=== PATIENT | male | born 1965 | race Caucasian/White ===

== ENCOUNTER → 2017-04-30 17:17 | Outpatient (CLI) | payer MEDICAID, SELFPAY ==
[2017-04-30 18:33] LABS: Basophils # 0.1 K/mm3 (0-0.2); Basophils % 0.7 % (0.1-2.0); Eosinophils # 0.2 K/mm3 (0.0-0.4); Hematocrit 45.3 % (42.0-52.0); Hemoglobin 15.2 g/dL (14.1-18.0); Lymphocytes # 2.3 K/mm3 (0.7-4.5); Lymphocytes % 26.7 K/mm3 (10-50); Mean Corpuscular HGB Conc 33.7 g/dL (31.8-35.4); Mean Corpuscular Hemoglobin 30.8 pg (27.0-31.2); Mean Corpuscular Volume 91.5 fl (80-94); Mean Platelet Volume 7.7 fl (7.4-10.4); Monocytes # 0.4 K/mm3 (0.1-1.0); Neutrophils # 5.6 K/mm3 (1.8-7.8); Neutrophils % 65.6 % (37.0-80.0); Platelet Count 279 K/mm3 (142-424); Red Blood Count 4.95 M/mm3 (4.60-6.20); Red Cell Distribution Width 13.7 % (11.5-17.5); White Blood Count 8.5 K/mm3 (4.8-10.8)
[2017-04-30 20:15] LABS: Alanine Aminotransferase 56 U/L (12-78); Albumin Level 4.4 gm/dL (3.4-5.0); Albumin/Globulin Ratio 1.6 (1.1-1.8); Alkaline Phosphatase 88 U/L (46-116); Anion Gap 13.3 mEq/L (5-15); Aspartate Amino Transferase 21 U/L (15-37); Bilirubin,Total 0.5 mg/dL (0.2-1.0); Blood Urea Nitrogen 13 mg/dL (7-18); Carbon Dioxide 27 mmol/L (21.0-32.0); Chloride 106 mmol/L (98-107); Chol/HDL Ratio 7.1 (1-3.5); Cholesterol 219 mg/dL (140-200); Creatinine,Serum 1.09 mg/dL (0.70-1.30); Estimated Glomerular Filt Rate 72 ml/min (>60); GFR (African American) 87 ML/MIN (>60); Globulin 2.7 gm/dl (1.3-3.2); Glucose 79 mg/dL (74-106); HDL Cholesterol 31 mg/dL (27-67); LDL Cholesterol 163 mg/dL (0-130); Potassium 4.3 mmoL/L (3.5-5.1); Sodium 142 mmol/L (136-145); Total Protein,Serum 7.1 gm/dL (6.4-8.2); Triglycerides 124 mg/dL (30-200); VLDL Cholesterol 25 mg/dL (0-40)
[2017-05-02 19:23] LABS: Vitamin B12 541 pg/mL (232-1245)
== END ==
PROVIDERS: PCP Internal Medicine Adolescent Medicine; Visit Provider Nurse Practitioner Family
DX: E53.8 Deficiency of other specified B group vitamins (principal); Z00.00 Encounter for general adult medical examination without abnormal findings
CPT/HCPCS: 36415; 80053; 80061; 82607; 85025

== ENCOUNTER → 2017-05-07 12:49 | Outpatient (CLI) | payer MEDICAID, SELFPAY ==
--- NOTE | 2017-05-07 13:00 | XR_ITS ---
XR tibia fibula LT 2V CLINICAL INDICATION: Left lower extremity pain ITS.REASON: GILMER-SCHLATTERS DISEASE, LT ANTERIOR KNEE PAIN ORDERING PHYSICIAN: Sudha Keith PATIENT AGE: 51 years COMPARISON: None FINDINGS: Ununited ossification center is present at the tibial tuberosity with minimal fragmentation and some minimal overlying soft tissue swelling. This is consistent with unresolved [place]-Schlatters Disease. The mid and distal aspect of the tibia and fibula have an unremarkable appearance IMPRESSION: The findings are consistent with unresolved [place]-Schlatters Disease
--- NOTE | 2017-05-07 13:00 | XR_ITS ---
XR knee LT 3V HISTORY: ITS.REASON: GILMER-SCHLATTERS DISEASE, LT ANTERIOR KNEE PAIN ORDERING PHYSICIAN: Sudha Keith PATIENT AGE: 51 years COMPARISON: None FINDINGS: Ununited ossification center is present at the tibial tuberosity with minimal fragmentation and some minimal overlying soft tissue swelling. This is consistent with unresolved [place]-Schlatters Disease. No fracture or dislocation. No lytic or blastic change. There is minimal osteoarthritic change of the medial compartment. 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
== END ==
PROVIDERS: PCP Internal Medicine Adolescent Medicine; Visit Provider Nurse Practitioner Family
DX: M92.52 Juvenile osteochondrosis of tibia tubercle (principal); M25.562 Pain in left knee
CPT/HCPCS: 73562; 73590

== ENCOUNTER → 2017-11-11 12:26 | Outpatient (CLI) | payer MEDICAID, SELFPAY ==
[2017-11-11 13:27] LABS: Alanine Aminotransferase 45 U/L (12-78); Albumin Level 4.2 gm/dL (3.4-5.0); Albumin/Globulin Ratio 1.6 (1.1-1.8); Alkaline Phosphatase 95 U/L (46-116); Anion Gap 14.2 mEq/L (5-15); Aspartate Amino Transferase 18 U/L (15-37); Bilirubin,Total 0.6 mg/dL (0.2-1.0); Blood Urea Nitrogen 11 mg/dL (7-18); Calcium 8.9 mg/dL (8.5-10.1); Carbon Dioxide 27 mmol/L (21.0-32.0); Chloride 105 mmol/L (98-107); Chol/HDL Ratio 6.2 (1-3.5); Cholesterol 185 mg/dL (140-200); Creatinine,Serum 1.26 mg/dL (0.70-1.30); Estimated Glomerular Filt Rate 60 ml/min (>60); GFR (African American) 73 ML/MIN (>60); Globulin 2.7 gm/dl (1.3-3.2); Glucose 102 mg/dL (74-106); HDL Cholesterol 30 mg/dL (27-67); LDL Cholesterol 139 mg/dL (0-130); Potassium 4.2 mmoL/L (3.5-5.1); Sodium 142 mmol/L (136-145); Total Protein,Serum 6.9 gm/dL (6.4-8.2); Triglycerides 78 mg/dL (30-200); VLDL Cholesterol 16 mg/dL (0-40)
[2017-11-11 13:44] LABS: Basophils # 0.1 K/mm3 (0-0.2); Basophils % 0.7 % (0.1-2.0); Eosinophils # 0.2 K/mm3 (0.0-0.4); Eosinophils % 2.2 % (0.1-12.0); Hematocrit 46.8 % (42.0-52.0); Hemoglobin 15.5 g/dL (14.1-18.0); Lymphocytes % 24.6 K/mm3 (10-50); Mean Corpuscular HGB Conc 33.2 g/dL (31.8-35.4); Mean Corpuscular Hemoglobin 30.8 pg (27.0-31.2); Mean Corpuscular Volume 92.8 fl (80-94); Mean Platelet Volume 7.4 fl (7.4-10.4); Monocytes # 0.4 K/mm3 (0.1-1.0); Monocytes % 5.1 % (1.7-9.3); Neutrophils # 5.4 K/mm3 (1.8-7.8); Neutrophils % 67.4 % (37.0-80.0); Platelet Count 304 K/mm3 (142-424); Red Blood Count 5.04 M/mm3 (4.60-6.20); Red Cell Distribution Width 13.5 % (11.5-17.5); White Blood Count 8.1 K/mm3 (4.8-10.8)
[2017-11-12 10:15] LABS: Vitamin B12 759 pg/mL (232-1245)
== END ==
PROVIDERS: Visit Provider Internal Medicine Adolescent Medicine
DX: E78.5 Hyperlipidemia, unspecified (principal); E53.8 Deficiency of other specified B group vitamins; R53.83 Other fatigue
CPT/HCPCS: 36415; 80053; 80061; 82607; 85025

== ENCOUNTER → 2020-08-15 10:05 | Outpatient (CLI) | payer OTHER, SELFPAY ==
--- NOTE | 2020-08-15 10:09 | MR_ITS ---
PROCEDURE INFORMATION: Exam: MR Lumbar Spine Without Contrast Exam date and time: 08/15/2020 10:09 AM Age: 54 years old Clinical indication: Low back pain; Additional info: Lumbago, cervical neuralgia. Bilateral leg pain, numbness, and tingling. Lbp. No injury or trauma TECHNIQUE: Imaging protocol: Multiplanar magnetic resonance images of the lumbar spine without intravenous contrast. COMPARISON: No relevant prior studies available. FINDINGS: Vertebrae: 2 mm of degenerative retrolisthesis of L4 on L5 and L5 on S1. No acute fracture seen. Spinal cord: The conus medullaris ends normally. Disc desiccation at L4-L5 and L5-S1. Rjlr-nc-qwlcgshj disc height loss and spondylosis at L5-S1. Mild endplate inflammation at L5-S1 is likely degenerative. L1-L2: No significant disc disease. No significant spinal canal stenosis. No neural foraminal stenosis. L2-L3: No significant disc disease. No significant spinal canal stenosis. No neural foraminal stenosis. L3-L4: No significant disc disease. No significant spinal canal stenosis. No neural foraminal stenosis. L4-L5: Slight retrolisthesis. Mild disc bulge and facet arthropathy as well as right ligamentum flavum buckling. High-intensity zone in posterior disc margin without a focal disc protrusion or extrusion. No significant central spinal canal stenosis. Lateral recess stenoses are mild, present more so on the right. No significant foraminal stenoses. L5-S1: Retrolisthesis. Drok-ss-kggruure diffuse disc osteophyte complex and facet arthropathy. A 2-3 mm component of right eccentric central soft disc protrusion may contact the right S1 nerve root without contribution to jose ramon nerve root compression or displacement. The central spinal canal is patent. Mild bilateral neural foraminal stenoses. Sacrum/coccyx: Post graft harvest changes of the right iliac wing. Soft tissues: Unremarkable. Kidneys and ureters: The left kidney appears mildly atrophic. IMPRESSION: 1. Mild lateral recess stenoses at L4-L5. 2. A small central disc protrusion at L5-S1 may contact the right S1 nerve root. 3. Mild bilateral neural foraminal stenoses at L5-S1.
--- NOTE | 2020-08-15 10:09 | MR_ITS ---
PROCEDURE INFORMATION: Exam: MR Cervical Spine Without Contrast Exam date and time: 08/15/2020 10:09 AM Age: 54 years old Clinical indication: Neck pain; Prior surgery; Surgery date: 6+ months; Additional info: Lumbago, cervical neuralgia. HX 3 neck surgeries last one 2011. Lt sided neck pain. Lt arm pain, numbness, and tingling. Tingling in 5th digit. No prior. TECHNIQUE: Imaging protocol: Multiplanar magnetic resonance images of the cervical spine without contrast. COMPARISON: No relevant prior studies available. FINDINGS: Vertebrae: Straightening of the cervical lordosis may be positional or due to muscle spasm. No acute fracture seen. Spinal cord: Normal signal. No cord compression. Prior ACDF from C5 through C7. There is solid osseous bridging across the C5-C6 and C6-C7 disc spaces. Susceptibility artifact related to posterior hardware at the C5-C6 level. Disc desiccation at C3-C4. There is mild posterior disc height loss with endplate osteophytic ridging. Minimal prevertebral spondylosis at C4-C5. C2-C3: The central spinal canal is patent. Moderate right facet arthropathy causing mild right neural foraminal stenosis. No significant left neural foraminal narrowing. C3-C4: Disc osteophyte complex and ligamentum flavum buckling without contribution to central spinal canal stenosis. Uncovertebral and facet arthropathy causing moderate bilateral neural foraminal stenoses. C4-C5: Mild facet arthropathy. No stenoses. C5-C6: Postoperative changes. No visible stenoses. C6-C7: Postoperative changes. No visible stenoses. C7-T1: No significant disc disease. No significant spinal stenosis. Soft tissues: Unremarkable. IMPRESSION: 1. Mild right neural foraminal stenosis at C2-C3. 2. Moderate bilateral neural foraminal stenoses at C3-C4.
--- NOTE | 2020-08-15 11:26 | CT_ITS ---
PROCEDURE: CT LUNG SCREENING CLINICAL INDICATION: HX OF NICOTINE DEPENDENCE Current smoker 30 pack year smoking history No prior COMPARISON: No exams were available for comparison TECHNIQUE: The exam was performed on a GE Light Speed [address] scanner using 2.90 mGy CTDI. A low dose helical CT CHEST was performed on a multi-detector scanner. All CT scans at the facility use one or more dose reduction, viz: automated exposure control, ma/kV adjustment per patient size (including targeted exams where dose is matched to indication, i.e. head), or iterative reconstruction technique. The LDCT was performed in a facility that meets the criteria for the screening program. Data regarding this exam was submitted to ACR which is an approved registry. The order for this exam indicates that it came as a result of a lung cancer screening counseling shard decision-making visit that included all the elements required of such a visit including smoking cessation. The radiologist interpreting this exam meets the [facility] criteria for the LDCT lung cancer screening program. The exam is reported using the Lung-RADS classification scale and reported to the ACR registry. NOTE: This study was performed for the specific purposes of lung cancer screening and is not an alternative to diagnostic chest CT. RADIATION DOSE: CTDI vol(CT dose Index-volume) = 2.90mG DLP (Dose Length Product) = 115.68 mGcm FINDINGS: No suspicious pulmonary nodules. Minimal atelectatic changes or fibrotic change in the right lung base. No areas of lobar consolidation or collapse. OTHER FINDINGS: Coronary artery calcifications. Cholelithiasis. Renal calculi. Gynecomastia. Shoddy nodes present in the axillary regions on both sides slightly greater on the left. IMPRESSION: Lung-RADS Category 1 Negative Follow-up: Continue annual screening with LDCT in 12 months Other findings as described above. Dictated by: Dean Mooney MD 08/20/2020 13:46 Dean Mooney MD in [place] 08/20/2020 13:46
== END ==
PROVIDERS: PCP Internal Medicine Adolescent Medicine; Visit Provider Internal Medicine Adolescent Medicine
DX: M54.12 Radiculopathy, cervical region (principal); M54.42 Lumbago with sciatica, left side; M54.41 Lumbago with sciatica, right side; G89.29 Other chronic pain; Z87.891 Personal history of nicotine dependence; Z12.2 Encounter for screening for malignant neoplasm of respiratory organs
CPT/HCPCS: 71271; 72141; 72148; 76376

== ENCOUNTER → 2021-05-20 13:58 | Outpatient (CLI) | payer OTHER, SELFPAY ==
--- NOTE | 2021-05-20 | CA_ITS ---
APPROVED REPORT Exam: Exercise Treadmill Technologist: Angeline Vasquez, Ht: 6 ft 1 in Wt: 177 lbs BSA: 2.04 m2 HR: 80 bpm BP: 145/103 mmHg Medical History Medications: Atorvastatin,,,,, Albuterol,,,,, Ibuprofen,,,,, DiPHENHYDRAMINE,,,,, AZITHROMYCIN,,,,, BenzONATe,,,,, Stress Test Details Test: Jorge HR Resting HR: 92 bpm Max Heart Rate (APMHR): 166.929742 bpm Max HR Achieved: 160 bpm Target HR (85% APMHR): 141.090694 bpm % of APMHR: 96.39 Recovery HR: 107 bpm BP Resting BP: 140/103 mmHg Max BP: 172/100 mmHg Recovery BP: 138.0/90.0 mmHg ECG Resting ECG: NSR Clinical Reason for Termination: Dyspnea Exercise duration: 09:00 min Highest Stage Achieved: Exercise capacity: 10.1 METs Stress ECG Conclusion Max HR: 160 Max BP: 170/100 METs: 10.1 Test stopped due to: SOA Symtoms: None Arrhythmias/Ectopy: PVC's ST-T Changes: <1.5mm ST Segment Changes Conclusion: Negative stress Test Summary REST . . . . . . . Sitting REST . . . . . . . Standing REST 05:16 0.0 1.2 92 . 140/103 . . Stage 1 01:00 10.0 1.7 109 . . . . Stage 1 02:00 10.0 1.7 117 . . . . Stage 1 03:00 10.0 1.7 120 . 160/ 90 . . Stage 2 01:00 12.0 2.5 127 . . . . Stage 2 02:00 12.0 2.5 133 . . . . Stage 2 03:00 12.0 2.5 136 . 172/100 . . Stage 3 01:00 14.0 3.4 151 . . . . Stage 3 02:00 14.0 3.4 157 . . . . Stage 3 03:00 14.0 3.4 158 . 170/100 . Stop exercise at 09:00 RECOVERY 01:00 0.0 0.0 142 . . . . RECOVERY 02:00 0.0 0.0 116 . . . . RECOVERY 03:00 0.0 0.0 108 . . . . RECOVERY 04:00 0.0 0.0 106 . . . . RECOVERY 04:47 0.0 0.0 103 . 138/ 90 . . Electronically signed by : Ozzie Franklin MD 05/20/2021 17:58:50
== END ==
PROVIDERS: PCP Internal Medicine Adolescent Medicine; Visit Provider Internal Medicine Adolescent Medicine
DX: R07.9 Chest pain, unspecified (principal)
CPT/HCPCS: 93017

== ENCOUNTER → 2021-06-10 15:29 | Outpatient (CLI) | payer SELFPAY ==
--- NOTE | 2021-06-10 15:31 | CT_ITS ---
FINAL REPORT CLINICAL HISTORY: CURRENT SMOKER COMPARISON: 08/15/2020 FINDINGS: CTDI vol (mGy): 2.[address] images of the chest were obtained using the low-dose protocol for screening. There is no evidence of mediastinal or hilar mass or adenopathy. No axillary mass or adenopathy is identified. On the lung window images, there is a 2 mm left lower lobe nodule seen on image #42, stable from prior exam. There are several calcified granulomas. Mild pulmonary scarring is seen. Limited imaging of the upper abdomen demonstrates cholelithiasis. IMPRESSION: 2 mm left lower lobe nodule on image #42, stable. Lung RADS category 2. Recommend 12 month followup low-dose CT for further evaluation. Reviewed, Interpreted and Dictated by Uli Thorpe III, MD Transcribed by Ellie Whittington Authenticated by Uli Thorpe III, MD on 06/10/2021 04:40:54 PM [facility]
== END ==
PROVIDERS: PCP Internal Medicine Adolescent Medicine; Visit Provider Internal Medicine Adolescent Medicine
DX: Z87.891 Personal history of nicotine dependence (principal); Z12.2 Encounter for screening for malignant neoplasm of respiratory organs
CPT/HCPCS: 71271

== ENCOUNTER 2023-04-25 09:57 | Outpatient (CLI) | payer SELFPAY | END 2023-04-25 23:59 | LOC: LAB.DROPOF 09:58 | PROVIDERS: PCP Nurse Practitioner Family; Visit Provider Nurse Practitioner Family | DX: R19.7 Diarrhea, unspecified (principal) ==

== ENCOUNTER 2023-04-28 09:10 | Outpatient (CLI) | payer OTHER, SELFPAY ==
[2023-04-28 09:17] LABS: Adenovirus F 40/41, stool Not Detected (NotDetected); Astrovirus Not Detected (NotDetected); Campylobacter Not Detected (NotDetected); Clostridium Difficile A/B, PCR Not Detected (NotDetected); Cryptosporidium Not Detected (NotDetected); Cyclospora Cayetanesis Not Detected (NotDetected); Entamoeba histolytica Not Detected (NotDetected); Enteroaggregative E coli Not Detected (NotDetected); Enteropathogenic E coli Not Detected (NotDetected); Enterotoxigenic E coli Not Detected (NotDetected); Giardia lamblia Not Detected (NotDetected); Norovirus Not Detected (NotDetected); Plesimonas Shigalloides, PCR Not Detected (NotDetected); Rotavirus A Not Detected (NotDetected); Salmonella, PCR Not Detected (NotDetected); Sapovirus Not Detected (NotDetected); Shiga-like toxin E coli Not Detected (NotDetected); Shigella Enterovasive E coli Not Detected (NotDetected); Vibrio Cholerae Not Detected (NotDetected); Vibrio, PCR Not Detected (NotDetected); Yersinia Entercolitica, PCR Not Detected (NotDetected)
== END 2023-04-28 23:59 ==
LOC: LAB.DROPOF 09:12
PROVIDERS: PCP Internal Medicine Adolescent Medicine; Visit Provider Nurse Practitioner Family
DX: R19.7 Diarrhea, unspecified (principal); K92.1 Melena
CPT/HCPCS: 87507

== ENCOUNTER 2023-05-08 10:37 | Outpatient (CLI) | payer OTHER, SELFPAY ==
--- OUTSIDE RECORDS SUMMARY | 2023-05-08 10:39 | XMS_ITS | Continuity of Care Document ---
Author Name Unknown Address [address], [place] [id number] Organization [facility] Phone Care Team Providers Care Biostatistics Manager Name Role Phone SAI ARREGUIN Unavailable [phone] ALICE ELAINE Primary Care SAI ARREGUIN Admitting [phone] SAI ARREGUIN Primary Attending ALLERGIES AND ADVERSE REACTIONS ALLERGIES AND ADVERSE REACTIONS Code System Allergy Substance Adverse Reaction Date Reaction (Severity) Comment Status Reported By Updated By [id number] RXNorm MORPHINE Adverse reaction to substance FEEL FUNNY active [id number] on April 14, 2021 12:11:50 AM [facility] FAMILY HISTORY RELATION: Father Status: LIVING SNOMED-CT Diagnosis Age At Onset [id number] Heart disease [id number] History of total knee arthroplas ty RELATION: Mother Status: LIVING SNOMED-CT Diagnosis Age At Onset [id number] Lung mass [id number] Heart disease RESULTS Patient: CAMERON Roy Date of : 1965 LABORATORY RESULTS Information is not available LABORATORY NARRATIVE RESULTS Information is not available RADIOLOGY RESULTS ORDER 100: US LIVER (LOINC: [id number]) ORDER DATE: April 29, 2023 1:50:00 PM [facility] PATHOLOGY NARRATIVE RESULTS Information is not available MICROBIOLOGY RESULTS No Micro Labs/Results Exist for Patient BLOOD ADMIN RESULTS Information is not available MEDICATIONS HOME MEDICATIONS Status RXNORM Medication Dose Route Frequency Dates Comments R eported By Updated By Drug Treatment Unknown DISCHARGE MEDICATIONS Status RXNORM Medication Dose Route Frequency Dates Comments Physic yi Updated By No Discharge Medication Info rmation Available INPATIENT MEDICATIONS Status RXNORM Medication Dose Route Frequency Rate Quantity Dates Comments Physician Updated By No Inpatient Medication Info rmation Available SOCIAL HISTORY SOCIAL HISTORY SNOMED-CT Social History Element Description Effective Dates Offered Cessation Comment UpdatedBy [id number] Historical Tobacco smoking status Current Every Day Smoker Yes [id number] on March 25, 2018 7:26:36 PM [facility] SOCIAL HISTORY - Gender Sex: Male SOCIAL HISTORY - Sexual Behavior Sexual Orientation Gender Identity SNOMED-CT Description SNO MED -CT Description Activity Level No of Partners Partner Type UpdatedBy HEALTH CONCERNS Problems Concern Status Health Concern problem infor mation not available. Smoking Status Status Years Used Consumed packs p er day Health Concern smoking histo ry information not available. Family History Concern Status Health Concern family histor y information not available. ENCOUNTERS ENCOUNTER INFORMATION Reason for Visit R74.8 Admission April 29, 2023 1:42:[address] [address] Discharge April 29, 2023 1:42:00 PM [facility] DISCHARGED TO HOME OR SELF CARE ENCOUNTER DIAGNOSES Notes information is not claudia ilable. Code System Diagnosis Onset Date Diagnosis information is not available. ABSTRACT DIAGNOSES Code System Diagnosis Updated By R74.8 ICD10 ABNORMAL LEVELS OF OTHER SERUM ENZYMES [id number] on April 30, 2023 12:54:04 PM [facility] R74.8 ICD10 ABNORMAL LEVELS OF OTHER SERUM ENZYMES [id number] on April 30, 2023 12:54:04 PM [facility] CARE TEAM Care Biostatistics Manager Role SAI ARREGUIN Referring ALICE ELAINE Primary Care SAI ARREGUIN Admitting SAI ARREGUIN Primary Attending CARE TEAM CARE gas station attendant Role on Team Status Start Date End Date Update d By CHELE JENKINS MD PCP normal March 7:31:21 PM [facility] April 29, 2023 5:00:00 AM [facility] [id number] on April 28, 2023 7:31:21 PM [facility] KALLIE HOLLANDI [employer]CR[employer]ER Referring normal April 28, 2023 7:31:21 PM [facility] April 29, 2023 5:00:00 AM [facility] [id number] on April 28, 2023 7:31:21 PM [facility] KALLIE GIBBS [employer]ER Attending normal April 28, 2023 7:31:21 PM [facility] April 29, 2023 5:00:00 AM [facility] [id number] on April 28, 2023 7:31:21 PM [facility] KALLIE GIBBS [employer]ER Admitting normal April 28, 2023 7:31:21 PM [facility] April 29, 2023 5:00:00 AM [facility] [id number] on April 28, 2023 7:31:21 PM [facility]
--- OUTSIDE RECORDS SUMMARY | 2023-05-08 10:39 | XMS_ITS | Continuity of Care Document ---
Author Name Unknown Address [address], [place] [id number] Organization [facility] Phone Care Team Providers Care Visual Communications Instructor Name Role Phone SAI ARREGUIN Unavailable ALICE ELAINE Primary Care SAI ARREGUIN Admitting SAI ARREGUIN Primary Attending [phone] ALLERGIES AND ADVERSE REACTIONS ALLERGIES AND ADVERSE REACTIONS Code System Allergy Substance Adverse Reaction Date Reaction (Severity) Comment Status Reported By Updated By [id number] RXNorm MORPHINE Adverse reaction to substance FEEL FUNNY active [id number] on April 14, 2021 12:11:50 AM [facility] FAMILY HISTORY RELATION: Father Status: LIVING SNOMED-CT Diagnosis Age At Onset [id number] Heart disease [id number] History of total knee arthroplas ty RELATION: Mother Status: LIVING SNOMED-CT Diagnosis Age At Onset [id number] Lung mass [id number] Heart disease TREATMENT PLAN DISCHARGE MEDICATIONS Status RXNORM Medication Dose Route Frequency Dates Comments U pdated By Patient discharge medication information is not available. PATIENT OPEN ORDERS Code System Description Frequency Occurrences Priority [place] [id number] [facility] ONE TIME 0 Routine April 29, 2023 1:50:00 PM [facility] MANDY GIBBS CORONER FORENSIC TECHNICIAN [id number] on April 29, 2023 2:40:00 PM [facility] SCHEDULED PROCEDURES Code System Description Status Scheduled Date Upd ated By Patient scheduled procedure information is not available. MEDICATIONS HOME MEDICATIONS Status RXNORM Medication Dose [...] Description Effective Dates Offered Cessation Comment UpdatedBy [id number] Historical Tobacco smoking status Current Every Day Smoker Yes [id number] on March 25, 2018 7:26:36 PM [facility] SOCIAL HISTORY - Gender Sex: Male SOCIAL [...] R74.8 Admission April 29, 2023 1:42:[address] [address] Discharge April 29, 2023 1:42:00 PM [facility] DISCHARGED TO HOME OR SELF CARE ENCOUNTER DIAGNOSES Notes information is not claudia ilable. Code System Diagnosis Onset Date Diagnosis information is not available. ABSTRACT DIAGNOSES Code System Diagnosis Updated By R74.8 ICD10 ABNORMAL LEVELS OF OTHER SERUM ENZYMES [id number] on April 28, 2023 7:31:21 PM [facility] CARE TEAM Care Visual Communications Instructor Role SAI ARREGUIN Referring ALICE ELAINE Primary Care SAI ARREGUIN Admitting SAI ARREGUIN Primary Attending CARE TEAM CARE inpatient auditor Role on Team Status Start Date End Date Update d By CHELE JENKINS MD PCP normal March 7:31:21 PM [facility] April 29, 2023 1:42:00 PM [facility] [id number] on April 28, 2023 7:31:21 PM [facility] KALLIE GIBBS CORONER FORENSIC TECHNICIAN Referring normal April 28, 2023 7:31:21 PM [facility] April 29, 2023 1:42:00 PM [facility] [id number] on April 28, 2023 7:31:21 PM [facility] KALLIE GIBBS CORONER FORENSIC TECHNICIAN Attending normal April 28, 2023 7:31:21 PM [facility] April 29, 2023 1:42:00 PM [facility] [id number] on April 28, 2023 7:31:21 PM [facility] KALLIE GIBBS CORONER FORENSIC TECHNICIAN Admitting normal April 28, 2023 7:31:21 PM [facility] April 29, 2023 1:42:00 PM [facility] [id number] on April 28, 2023 7:31:21 PM [facility]
--- NOTE | 2023-05-08 10:47 | ECG_ITS ---
APPROVED REPORT Exam: Resting ECG HR:71 bpm ECG Measurements Heart Rate 71 AXES ID 154 P 63 QRSd 92 QRS 74 QT 370 T 68 QTc 393 Conclusion SINUS RHYTHM NORMAL ECG UNCONFIRMED REPORT Electronically signed by : Ozzie Franklin MD 05/09/2023 06:31:48
[2023-05-08 11:35] LABS: Basophils % 0.8 % (0.1-2.0); Eosinophils # 0.2 K/mm3 (0.0-0.4); Eosinophils % 3.8 % (0.1-12.0); Hematocrit 44.9 % (42.0-52.0); Hemoglobin 15.2 g/dL (14.1-18.0); Lymphocytes # 1.7 K/mm3 (0.7-4.5); Lymphocytes % 36.1 % (10-50); Mean Corpuscular HGB Conc 33.8 g/dL (31.8-35.4); Mean Corpuscular Hemoglobin 32.5 pg (27.0-31.2); Mean Platelet Volume 8.1 fl (7.4-10.4); Monocytes # 0.4 K/mm3 (0.1-1.0); Neutrophils # 2.4 K/mm3 (1.8-7.8); Neutrophils % 51.4 % (37.0-80.0); Platelet Count 280 K/mm3 (142-424); Red Blood Count 4.68 M/mm3 (4.60-6.20); Red Cell Distribution Width 13.8 % (11.5-17.5); White Blood Count 4.7 K/mm3 (4.8-10.8)
[2023-05-08 12:29] LABS: Alanine Aminotransferase 43 U/L (12-78); Albumin Level 4.4 g/dl (3.5-5.0); Albumin/Globulin Ratio 1.9 (1.1-1.8); Alkaline Phosphatase 65 U/L (38-126); Anion Gap 10.4 mEq/L (5-15); Aspartate Amino Transferase 36 U/L (17-59); Bilirubin,Total 0.4 mg/dl (0.2-1.3); Blood Urea Nitrogen 12 mg/dl (9-20); Calcium 9.5 mg/dl (8.4-10.2); Carbon Dioxide 27 mmol/L (22.0-30.0); Chloride 105 mmol/L (98-107); Estimated Glomerular Filt Rate 77 ml/min (>60); GFR (African American) 94 ML/MIN (>60); Globulin 2.3 g/dL (1.3-3.2); Glucose 98 mg/dl (74-100); Potassium 4.4 mmoL/L (3.5-5.1); Sodium 138 mmol/L (136-145); Total Protein,Serum 6.7 g/dl (6.3-8.2)
== END 2023-05-08 23:59 ==
LOC: LAB 10:38
PROVIDERS: PCP Internal Medicine Adolescent Medicine; Visit Provider Surgery
DX: K80.20 Calculus of gallbladder without cholecystitis without obstruction (principal)
CPT/HCPCS: 36415; 80053; 85025; 93005

== ENCOUNTER 2023-05-14 09:08 | Day surgery (SDC) | payer OTHER, SELFPAY ==
[2023-05-12 12:40] VITALS: BMI 22.6
[2023-05-14] VITALS (11 sets, daily range): BP systolic 124–153; BP diastolic 43–105; PULSE 72–88; RESP 16–18; TEMP 36.2–43; O2SAT 93–96
[2023-05-14] MEDS: LACTATED RINGERS 1000ML 1,000 ML 100 ML IV (10:15)
--- NOTE | 2023-05-14 12:37 | P.PNANES_ITS ---
[facility] Disclaimer: The information contained in this section may have been updated after the patient was seen, as this information can be updated by other users. Medical History Gallbladder disease Surgical History History of appendectomy History of neck surgery Hx of inguinal hernia repair Family History Other Family history of cancer Social History (Updated 05/14/23 @ 10:14 by Ilsa Sibley RN) Smoking Status: Former smoker tobacco type: cigarettes alcohol intake: current substance use type: denies use current occupational status: employed Travel in the last 8 weeks: None household members: family [facility] Anesthesia Checklist Patient Identification Patient Identification: Arm Band Structural Data Admitted From: Home Planned Operative Procedure/s: Laparoscopic Cholecystectomy Consent for Planned Operative Procedure(s) Verified: Yes Verified Documents: Surgical Consent and History and Physical NPO Status Verified Time NPO: 00:00 Additional verifications Anesthesia Reactions: No Hx Blood Transfusions: No Blood Transfusion Reaction: No Airway Assessment Mallampati Score:: Class II C-Spine Mobility Assessed: Yes TMJ Mobility Assessed: Yes Dentition: Good Dentition Neurological Assessment Level of Consciousness: Awake and Alert Anesthesia Plan Anesthesia Risk discussed: Yes Anesthesia Plan: Verified ASA Class: II Anesthesia Type: General
[2023-05-14] MEDS: LIDOCAINE 1% 20ML MDV 20 ML (12:50)
[2023-05-14] MEDS: SODIUM CHLORIDE IRRIG SOLUTION 3,000 ML 3000 ML IR (12:50)
[2023-05-14] MEDS: CEFAZOLIN SODIUM 1 GM in 0.9 % SODIUM CHLORIDE 50 ML IV (12:51)
--- NOTE | 2023-05-14 13:28 | EXP.OP.NOTE ---
Date of procedure: 05/14/23 Pre-op Diagnosis:: Symptomatic cholelithiasis Post-op Diagnosis:: Chronic calculus cholecystitis Procedure performed:: Laparoscopic cholecystectomy Surgeon:: Travis Ulloa MD FREIGHT FORWARDER:: Kosta Peoples Anesthesia: GETA Estimated blood loss (mL): 15 Operative findings:: Pericholecystic fat stranding Moderate infundibular thickening Operative note:: After informed consent was obtained, the patient was taken to the operating room and placed in the supine position. General anesthesia was induced and the abdomen was prepped and draped in a sterile fashion. After infiltration with local anesthetic an infraumbilical incision was made. A Veress needle was placed in position. The abdomen was insufflated. A 5 mm optical trocar was placed in position. Under direct visualization, a 12 mm trocar was placed in the subxiphoid position and 2 additional 5 mm trocars were placed in the right upper quadrant. The gallbladder was elevated up and over the liver margin. The tissue around the cystic duct was carefully dissected. 3 clips were placed proximally and the duct was transected with harmonic shonna. Harmonic shonna were then utilized to dissect the gallbladder away from the liver margin with careful attention to the control of the cystic artery. The gallbladder was placed in a retrieval bag and removed through the subxiphoid trocar site. The right upper quadrant was thoroughly irrigated. No active bleeding or bile leak was noted. Fascia at the subxiphoid trocar site was reapproximated utilizing the NeoClose device. The remaining trocars were removed. All wounds were irrigated and skin was closed with 4-0 Monocryl in a subcuticular fashion. Steri-Strips were applied. The patient's anesthetic agents were reversed and extubation was completed prior to transfer to recovery in stable condition. Condition: stable Disposition: PACU Specimens:: Gallbladder Complications:: No immediate
--- NOTE | 2023-05-14 13:33 | EXP.ANES.I ---
[facility] Anesthesia Record Part I Anesthesia Record I Intake, IV Amount: 1,100 Hydration: Adequate Estimated blood loss (mL): 10 Urine output (mL): 0 Blood Products used (#): none Blood Pressure: 153/105 SaO2: 93 Pulse Rate: 82 Airway Patency: Patent Respiratory Rate: 16 Temperature: 98.9 F Patient is:: Drowsy and Stable Stable to PACU at:: 13:30
--- NOTE | 2023-05-15 13:04 | EXP.ANES.II ---
[facility] Anesthesia Record Part II Anesthesia Record Part II Discharge Time: 14:00 Destination: Surgical Day Care (OP Surgery) PACU nurse assessment reviewed?: Yes Patient Condition:: Good Anesthesia Complications:: None Swallowing reflex intact?: Yes Airway Patency: Patent Cyanosis?: No Blood Pressure: 143/86 SaO2: 95 Respiratory Rate: 16 Pulse Rate: 76 Temperature: 97.1 F Mental Status: Alert & Oriented Pain level:: 2 Nausea and/or vomitting:: None Intake, IV Amount: 0 Hydration: Adequate
[2023-05-15 13:05] VITALS: BP 143/86; PULSE 76; RESP 16; TEMP 36.2; O2SAT 95
== END 2023-05-14 14:24 | disposition home or self-care (01) ==
PROVIDERS: PCP Internal Medicine Adolescent Medicine; Visit Provider Surgery
PROC: 0FT44ZZ Resection of Gallbladder, Percutaneous Endoscopic Approach (ICD-10-PCS; CPT 47562; principal; 2023-05-14 11:00)
DX: K80.10 Calculus of gallbladder with chronic cholecystitis without obstruction (principal)
CPT/HCPCS: 47562; 96374; J3490; J2405